=== PATIENT | male | born 1935 | race Caucasian/White ===

== ENCOUNTER → 2018-09-17 08:30 | Outpatient (CLI) | payer MEDICARE, OTHER, SELFPAY ==
--- NOTE | 2018-09-17 | DI.US.S_ITS ---
PROCEDURE: US ABD AORTA ANEURYSM SCREEN INDICATIONS: ABDOMINAL AORTIC ANEURYSM SCREENING TECHNIQUE: Real time scanning was performed of the aorta and iliac arteries, with image documentation. COMPARISON: None. FINDINGS: Aorta: Proximal aortic diameter measures 2.5 cm. Mid-aorta measures 2.0 cm. Distal aortic diameter is 1.8 cm. Iliac arteries: Right common iliac artery measures 1.2 cm. Left common iliac artery measures 1.2 cm. IMPRESSION: No abdominal aortic aneurysm is found. Dictated by: Ariel Navarrete M.D. on 09/17/2018 at 9:10 Approved by: Ariel Navarrete M.D. on 09/17/2018 at 9:18
== END ==
PROVIDERS: PCP Family Medicine; Visit Provider Family Medicine
DX: Z13.6 Encounter for screening for cardiovascular disorders (principal)
CPT/HCPCS: 76706

== ENCOUNTER 2019-02-16 10:51 | Day surgery (SDC) | payer MEDICARE, OTHER, SELFPAY ==
--- NOTE | 2019-02-16 | PATH_ITS ---
[facility] Accession Number: [id number] . 01 Material submitted: . PART A: colon - DESCENDING COLON POLYP X3 PART B: colon - SIGMOID POLYP X2 . 02 Diagnosis: A. Descending Colon, Polyps: Fragments of tubular adenoma and fragment of hyperplastic polyp (three polyps removed). . B. Sigmoid Colon, Polyps: Hyperplastic poly x1. Colonic mucosa with prominent benign lymphoid aggregate x1. MRV/02/17/2019 . 02 Electronically signed: . Everton Peoples MD, PhD, Pathologist NPI- [id number] . 01 Gross description: . Part A: DESCENDING COLON POLYP X3: Received in formalin are multiple fragment(s) of moses, soft tissue measuring 0.1 x 0.1 x 0.1 cm to 0.3 x 0.2 x 0.2 cm which is entirely submitted and submitted entirely in 1 cassette(s) Part B: SIGMOID POLYP X2: Received in formalin are 2 fragment(s) of moses, soft tissue measuring 0.2 x 0.2 x 0.2 cm to 0.3 x 0.2 x 0.2 cm which is entirely submitted and submitted entirely in 1 cassette(s) /DMC /DMC . 02 Pathologist provided ICD-10: D12.4, K63.5 . 02 CPT . 670812, [id number] Performed at: 01 [facility] [address] [id number] MD Jonnathan Dean MD Phone: [phone] Performed at: 02 [facility] [address] [place], [place] [id number] MD Deepa Christine MD Phone: [phone]
[2019-02-16] MEDS: SODIUM CHLORIDE 0.9% 1,000 ML 200 ML IV (11:05)
[2019-02-16 11:06] VITALS: BP 169/84; PULSE 56; RESP 16; TEMP 36.2; O2SAT 97; BMI 25.1
--- NOTE | 2019-02-16 11:28 | PM.HP.1 ---
History of Present Illness Date Patient Seen: 02/16/19 Time Patient Seen: 11:28 Chief complaint: 19457 Colonoscopy Narrative: 83-year-old man presents for his regular screening colonoscopy. Last was fiber 6 years ago. Known history of colon polyps status post polypectomy There is a possibility that his sister had colon cancer -he is unsure No family history of Crohn's or ulcerative colitis Tolerated his prep Patient History Medical History (Updated 02/16/19 @ 11:04 by Maya Mcdonald RN) Cancer (Acute) Elevated cholesterol (Acute) Surgical History (Updated 02/16/19 @ 11:06 by Maya Mcdonald RN) H/O inguinal hernia repair (Acute) S/P TURP (Acute) Social History household members: spouse Family & Social History Social History: household members spouse Meds Home Medications Medication Instructions Recorded Confirmed Type aspirin 81 mg PO DAILY 02/16/19 02/16/19 History Allergies Allergy/AdvReac Type Severity Reaction Status Date / Time No Known Drug Allergies Allergy Verified 02/16/19 11:02 Review of Systems Constitutional Constitutional: Denies fever(s) Eyes Eyes: Denies bulging eyes ENT Ears, Nose, Mouth, and Throat: No lip swelling Cardiovascular Cardiovascular: Denies generalize swelling Respiratory Respiratory: Denies stridor Gastrointestinal Gastrointestinal: Denies coffee ground emesis Musculoskeletal Musculoskeletal: Denies loss of height Integumentary/Breasts Skin/Breast: Denies wounds Neurologic Neurologic: Denies abnormal speech and Denies confusion Psychiatric Psychiatric: Denies confusion Endocrine Endocrine: Denies deepening of the voice Hematologic/Lymphatic Hematologic/Lymphatic: Denies lymphadenopathy Allergic/Immunologic Allergic/Immunologic: Denies lip swelling Exam Vital Signs (past 8 hours): - 02/16/19 11:06 Temperature 97.2 F L Pulse Rate 56 L Respiratory Rate 16 Blood Pressure 169/84 H Pulse Oximetry 97 Oxygen Delivery Method Room Air Const General: cooperative and healthy appearing Orientation: alert HENMT Head: normal to inspection Nose: nares normal Mouth: oral mucosae normal and lip normal Eyes Eyelids: eyelids normal Conjunctivae: conjunctivae normal Sclera: sclerae normal Neck Neck: supple and other (No thyromegally) Chest Chest: other (LCTAB , regular respiratory effort) Cardio Rhythm: regular rhythm Heart Sounds: S1 normal, S2 normal, no gallops, no murmurs and no rubs GI Other: Abdomen soft nontender nondistended Skin General: no rashes or lesions noted Neuro General: alert and awake Psych Appearance: grossly normal Affect: normal affect Assessment & Plan Assessment & Plan narrative: 83-year-old man presents for screening colonoscopy in the setting of above known colon polyp history Screening colonoscopy plan today Risks of procedure including , perforation, hypoxia, missed lesion all discussed Patient ready to proceed
[2019-02-16] MEDS: MIDAZOLAM 5 MG/5 ML VIAL IV (11:38)
[2019-02-16] MEDS: fentaNYL 250 MCG/5 ML INJ IV (11:39)
--- NOTE | 2019-02-16 12:16 | PM.OP.ENDO ---
Operative Date/Time/Diagnoses Date of procedure: 02/16/19 Time of procedure: 12:16 Pre-op diagnosis: screening colonoscopy Post-op diagnosis: other (colon polyps, prostate nodule) Procedure & Clinicians Study performed: screening colonoscopy Left colon cold biopsy polypectomy x 3 sigmoid colon cold biopsy polypectomy x 2 Same procedure as scheduled: Yes Indications: 83M with hx of colon polyps now 5-6yrs since last colonoscopy Surgeon: Tone Herrmann Procedure Notes SCOAP/Timeout: completed Procedure in detail: Patient taken to the endoscopy suite, time-out completed. Patient was sedated with a total of 4 mg of midazolam and 100 mcg fentanyl over the course of his entire procedure. A digital rectal exam was performed there are no colon lesion. There was however a moderately firm nodule identified on the inferior right pole of the prostate. 160 cm colonoscope was advanced through the patient's anus rectum and through course of the colon, there is a mild amount of difficulty negotiating the hepatic flexure both the remainder was without incident. The cecum was identified there was an obvious ileocecal valve, a subtle appendiceal orifice and a crows floot. The terminal ileum was intubated and appeared to be healthy. Then proceeded to back the colonoscope out slowly -identified left colon diverticula without active inflammation, upon reaching the mid descending colon a collection of 3 small sessile polyps were identified within a few cm of each other. These were all removed with cold biopsy forceps and sent to pathology and 1 group. The scope was further withdrawn into the sigmoid colon where there were numerous sigmoid diverticula without active inflammation. A total of 2 additional polyps were seen in the distal sigmoid colon -these were similarly removed with cold biopsy forceps. Upon reaching the distal rectum the scope was retroflexed did not identify a distal rectal. Scope was withdrawn Prep was adequate Scope withdrawal time: 18 Sedation minutes: 42 Findings: polyp Specimen(s): other (Sigmoid colon polyps, descending colon polyp) Complications: none Impression: 1) Left inferior prostate nodule 2) Left and sigmoid colon diverticulosis 3) small sessile colon polyps x 5, s/p polypectomy Recommendations: Colonscopy in 3 years Plan for aftercare: urology referal Pacu Home Follow up: as needed Disposition: PACU
[2019-02-16 12:20] VITALS: BP 116/63; PULSE 45; RESP 14; TEMP 36.3; O2SAT 98
[2019-02-16 12:25] VITALS: BP 116/52; PULSE 40; RESP 16; TEMP 36.3; O2SAT 98
[2019-02-16 12:27] VITALS: BP 123/68; PULSE 48; RESP 17; TEMP 36.1; O2SAT 97
[2019-02-16 12:35] VITALS: BP 120/60; PULSE 50; RESP 17; TEMP 36.3; O2SAT 98
== END 2019-02-16 12:40 | disposition home or self-care (01) ==
PROVIDERS: PCP Family Medicine; Visit Provider Surgery
PROC: 0DJD8ZZ Inspection of Lower Intestinal Tract, Via Natural or Artificial Opening Endoscopic (ICD-10-PCS; CPT 45378; principal; 2019-02-16 10:45)
DX: Z86.010 Personal history of colon polyps (principal); D12.5 Benign neoplasm of sigmoid colon; D12.4 Benign neoplasm of descending colon; K57.30 Diverticulosis of large intestine without perforation or abscess without bleeding; N40.2 Nodular prostate without lower urinary tract symptoms
CPT/HCPCS: 45380; 99152; 99153; J2250; J3010

== ENCOUNTER → 2021-12-19 08:58 | Outpatient (CLI) | payer MEDICARE, OTHER, SELFPAY ==
[2021-12-19 19:03] LABS: Add Manual Diff / Slide Review NO; Basophils Absolute Auto 100 /uL (0-100); Basophils Percent Auto 0.9 % (0-2); Eosinophils Absolute Auto 300 /uL (0-450); Eosinophils Percent Auto 3.6 % (2-4); Hematocrit 39.8 % (41-53); Hemoglobin 13.8 g/dL (13.5-17.5); Lymphocytes Absolute Auto 900 /uL (1100-4500); Lymphocytes Percent Auto 11.4 % (25-40); Mean Corpuscular HGB Conc 34.6 % (30-36); Mean Corpuscular Hemoglobin 32.5 PG (26-34); Mean Corpuscular Volume 93.9 fL (80-100); Monocytes Absolute Auto 1300 /uL (0-900); Monocytes Percent Auto 16.9 % (3-14); Neutrophils Absolute Auto 5200 /uL (1500-7000); Neutrophils Percent Auto 67.2 % (50-75); Platelet Count 242 X10^3/uL (150-400); Red Blood Cell Count 4.24 X10^6/uL (4.5-5.9); Red Cell Distribution Width 13.5 % (11.6-14.8); White Blood Cell Count 7.7 X10^3/uL (4.5-11.0)
[2021-12-19 19:08] LABS: Alanine Aminotransferase 18 IU/L (<50); Albumin 3.9 g/dL (3.5-5.0); Albumin Globulin Ratio 1.3 (1.0-2.8); Alkaline Phosphatase 79 U/L (38-126); Aspartate Aminotransferase 28 IU/L (17-59); BUN Creatinine Ratio 18.8 (6-22); Bilirubin Total 0.6 mg/dL (0.2-1.3); Blood Urea Nitrogen 19 mg/dL (9-20); Calcium 9.2 mg/dL (8.4-10.2); Carbon Dioxide 26 mmol/L (22-32); Chloride 106 mmol/L (98-107); Cholesterol 154 mg/dL (140-199); Estimated Glomerular Filt Rate > 60.0 mL/min (>60); Glucose 108 mg/dL (80-110); HDL Cholesterol 45 mg/dL (40-60); HEMOLYSIS < 15 (0-50); LDL Cholesterol Calculated 96 mg/dL (<100); Potassium 4.6 mmol/L (3.4-5.1); Sodium 138 mmol/L (137-145); Total Protein 6.9 g/dL (6.3-8.2); Triglycerides 67 mg/dL (35-150)
== END ==
PROVIDERS: PCP Family Medicine; Visit Provider Family Medicine
DX: E78.00 Pure hypercholesterolemia, unspecified (principal); I10 Essential (primary) hypertension
CPT/HCPCS: 80053; 80061; 85025

== ENCOUNTER → 2022-01-23 10:51 | Outpatient (CLI) | payer MEDICARE, OTHER, SELFPAY ==
[2022-01-23 18:43] LABS: Alanine Aminotransferase 14 IU/L (<50); Albumin 4.1 g/dL (3.5-5.0); Albumin Globulin Ratio 1.2 (1.0-2.8); Alkaline Phosphatase 92 U/L (38-126); Aspartate Aminotransferase 23 IU/L (17-59); BUN Creatinine Ratio 13.9 (6-22); Bilirubin Total 0.8 mg/dL (0.2-1.3); Blood Urea Nitrogen 14 mg/dL (9-20); Calcium 8.9 mg/dL (8.4-10.2); Carbon Dioxide 26 mmol/L (22-32); Chloride 104 mmol/L (98-107); Cholesterol 162 mg/dL (140-199); Estimated Glomerular Filt Rate > 60 mL/min (>60); Globulin 3.3 g/dL (1.7-4.1); Glucose 125 mg/dL (80-110); HDL Cholesterol 50 mg/dL (40-60); HEMOLYSIS < 15 (0-50); LDL Cholesterol Calculated 88 mg/dL (<100); Potassium 4.2 mmol/L (3.4-5.1); Sodium 140 mmol/L (137-145); Total Protein 7.4 g/dL (6.3-8.2); Triglycerides 118 mg/dL (35-150)
[2022-01-23 19:22] LABS: Prostate Specific Antigen Scrn 2.13 ng/mL (0.1-4.0)
[2022-01-24 16:55] LABS: HIV 1 & 2 Ab/Ag 4th Gen Combo NEGATIVE (NEGATIVE); Hep C Virus Ab w/Reflex Quant NEGATIVE s/c (NEGATIVE)
== END ==
PROVIDERS: PCP Family Medicine; Visit Provider Family Medicine
DX: E66.3 Overweight (principal); Z12.5 Encounter for screening for malignant neoplasm of prostate; C61 Malignant neoplasm of prostate; Z11.4 Encounter for screening for human immunodeficiency virus [HIV]; Z11.59 Encounter for screening for other viral diseases; Z13.1 Encounter for screening for diabetes mellitus; Z13.6 Encounter for screening for cardiovascular disorders
CPT/HCPCS: 80053; 80061; 86803; 87389; G0103

== ENCOUNTER → 2022-02-11 10:58 | Outpatient (CLI) | payer MEDICARE, OTHER, SELFPAY ==
--- NOTE | 2022-02-11 | DI.CT.S_ITS ---
PROCEDURE: CT LUNG LOW DOSE SCREENING INDICATIONS: SCREENING FOR LUNG CANCER TECHNIQUE: Noncontrast 2.0-2.5 mm thick sections acquired from the pulmonary apices to the posterior costophrenic angles. 7 mm thick axial MIP, and 5 mm coronal and sagittal reformats were then acquired. A low radiation dose technique was utilized. COMPARISON: None. FINDINGS: Image quality: Diagnostic, given the low radiation dose technique. Lungs and pleura: Multiple small nodules are present bilaterally. Reference lesions are listed in the following: Nodule 1: 2 mm; right upper lobe lateral; series 3, image 63. Nodule 2: 3 mm; right middle lobe anterior; series 3, image 130. Nodule 3: 3 mm; left lower lobe; series 3, image 182. Nodule 4: 2 mm; left lower lobe; series 3, image 204. Multiple small intra fissure nodules are seen in right major fissure. Mild emphysema. No acute pulmonary opacity. Mediastinum: Heart size is normal. No pericardial effusion. No mediastinal adenopathy by size criteria. Thoracic aorta and central pulmonary arteries are normal in size. Esophagus is normal in caliber. Small hiatal hernia. Bones and chest wall: No suspicious bony lesions. No vertebral body compression fractures. No axillary or supraclavicular adenopathy by size criteria. Thyroid gland is normal. Abdomen: Visualized upper abdomen solid organs and bowel loops appear normal in the absence of contrast. IMPRESSION: 1. Small lung nodules are present bilaterally. LUNG-RADS 2; recommend annual screening lung CT in 12 months. Dictated by: Neto Stewart M.D. on 02/11/2022 at 12:21 Approved by: Neto Stewart M.D. on 02/11/2022 at 12:35
== END ==
PROVIDERS: PCP Family Medicine; Referring Provider Family Medicine; Visit Provider Family Medicine
DX: Z12.2 Encounter for screening for malignant neoplasm of respiratory organs (principal); R91.8 Other nonspecific abnormal finding of lung field
CPT/HCPCS: 71250

== ENCOUNTER → 2022-09-19 11:31 | Outpatient (CLI) | payer MEDICARE, OTHER, SELFPAY ==
[2022-09-19 19:49] LABS: BUN Creatinine Ratio 17.6 (6-22); Blood Urea Nitrogen 16 mg/dL (9-20); Calcium 8.7 mg/dL (8.4-10.2); Carbon Dioxide 26 mmol/L (22-32); Chloride 101 mmol/L (98-107); Cholesterol 159 mg/dL (140-199); Estimated Glomerular Filt Rate > 60 mL/min (>60); Glucose 98 mg/dL (80-110); HDL Cholesterol 46 mg/dL (40-60); HEMOLYSIS < 15 (0-50); LDL Cholesterol Calculated 98 mg/dL (<100); Potassium 4.7 mmol/L (3.4-5.1); Sodium 138 mmol/L (137-145); Triglycerides 73 mg/dL (35-150)
[2022-09-19 20:17] LABS: Prostate Specific Antigen 2.33 ng/mL (0.10-4.00)
== END ==
PROVIDERS: PCP Family Medicine; Visit Provider Family Medicine
DX: I10 Essential (primary) hypertension (principal); Z85.46 Personal history of malignant neoplasm of prostate; E78.5 Hyperlipidemia, unspecified
CPT/HCPCS: 80048; 80061; 84153

== ENCOUNTER → 2023-06-12 09:53 | Outpatient (CLI) | payer MEDICARE, OTHER, SELFPAY ==
[2023-06-12 19:29] LABS: Cholesterol 149 mg/dL (140-199); Glucose 100 mg/dL (80-110); HDL Cholesterol 43 mg/dL (40-60); LDL Cholesterol Calculated 95 mg/dL (<100); Triglycerides 56 mg/dL (35-150)
== END ==
PROVIDERS: PCP Family Medicine; Visit Provider Family Medicine
DX: I10 Essential (primary) hypertension (principal); H35.341 Macular cyst, hole, or pseudohole, right eye; Z13.220 Encounter for screening for lipoid disorders; Z13.1 Encounter for screening for diabetes mellitus
CPT/HCPCS: 80061; 82947

== ENCOUNTER → 2023-09-19 10:31 | Outpatient (CLI) | payer MEDICARE, OTHER, SELFPAY ==
--- NOTE | 2023-09-19 10:32 | DI.NM.S_ITS ---
PROCEDURE: NM EVARISTO PERF SPECT R&S PHARM Rest and pharmacological stress myocardial perfusion SPECT with gated imaging and ejection fraction RADIOPHARMACEUTICAL: 11.6 mCi Tc-99m tetrafosmin IV at rest and 24.7 mCi Tc-99m tetrafosmin IV at peak effect of pharmacological stress. [id number] was performed. INDICATIONS: Other fatigue TECHNIQUE: Radiopharmaceutical was injected at peak stress test, and also at rest. SPECT images were obtained. SPECT myocardial perfusion images were displayed in short axis, horizontal long axis, and vertical long axis views. Gated images were reviewed using [employer] software. COMPARISON: None. CARDIAC STRESS: A pharmacologic stress test was performed under the supervision of an attending staff, using an infusion of lexiscan 0.4mg IV X1. Hemodynamic data: There is normal blood pressure and heart rate response to pharmacologic stress. Symptoms: The patient denied anginal chest pain. Aminophylline: none EKG: No diagnostic changes of ischemia; no ectopy. FINDINGS: Raw data: There is good myocardial uptake of radiotracer. No significant motion artifacts. Left ventricle function: Gated images demonstrate normal left ventricular wall thickening. No segmental wall motion abnormalities. No transient ischemic dilation; TID is 0.86 (normal less than 1.3). Left ventricle resting end diastolic volume is 103 mL. Left ventricle stress ejection fraction is 76%; normal range is above 45%. Myocardial perfusion: There is normal distribution of activity in the right and left ventricular myocardium. No fixed or reversible perfusion defects. IMPRESSION: Low risk, normal pharm nuclear stress test with normal wall motion and normal systolic function (EF post stress 76%). Dictated by: Angela Child MD on 09/19/2023 at 17:11 Approved by: Angela Child MD on 09/19/2023 at 17:12
== END ==
PROVIDERS: PCP Family Medicine; Referring Provider Internal Medicine Cardiovascular Disease; Visit Provider Internal Medicine Cardiovascular Disease
DX: R53.83 Other fatigue (principal); I10 Essential (primary) hypertension; E78.5 Hyperlipidemia, unspecified; R00.1 Bradycardia, unspecified
CPT/HCPCS: 78452; 93017; A9502; J2785

== ENCOUNTER → 2024-01-29 11:24 | Outpatient (CLI) | payer MEDICARE, OTHER, SELFPAY ==
[2024-01-29 19:55] LABS: Add Manual Diff / Slide Review NO; Basophils Absolute Auto 0 /uL (0-100); Basophils Percent Auto 0.4 % (0-2); Eosinophils Absolute Auto 100 /uL (0-450); Eosinophils Percent Auto 1.5 % (2-4); Hematocrit 40.4 % (41-53); Hemoglobin 13.8 g/dL (13.5-17.5); Lymphocytes Absolute Auto 900 /uL (1100-4500); Lymphocytes Percent Auto 12.6 % (25-40); Mean Corpuscular HGB Conc 34.2 % (30-36); Mean Corpuscular Hemoglobin 32.6 PG (26-34); Mean Corpuscular Volume 95.4 fL (80-100); Monocytes Absolute Auto 1200 /uL (0-900); Monocytes Percent Auto 16.5 % (3-14); Neutrophils Absolute Auto 4800 /uL (1500-7000); Platelet Count 255 X10^3/uL (150-400); Red Blood Cell Count 4.23 X10^6/uL (4.5-5.9); Red Cell Distribution Width 13.7 % (11.6-14.8)
[2024-01-29 20:12] LABS: Blood Urea Nitrogen 16 mg/dL (9-20); Calcium 9.2 mg/dL (8.4-10.2); Carbon Dioxide 27 mmol/L (22-32); Chloride 107 mmol/L (98-107); Estimated Glomerular Filt Rate > 60 mL/min (>60); Glucose 73 mg/dL (80-110); HEMOLYSIS < 15 (0-50); Potassium 4.2 mmol/L (3.4-5.1); Sodium 139 mmol/L (137-145)
[2024-01-29 20:40] LABS: Free T4, Direct Thyroxine 1.06 ng/dL (0.78-2.19)
== END ==
PROVIDERS: PCP Family Medicine; Visit Provider Family Medicine
DX: R53.83 Other fatigue (principal)
CPT/HCPCS: 80048; 84439; 85025

== ENCOUNTER → 2024-06-01 13:28 | Outpatient (CLI) | payer MEDICARE, OTHER, SELFPAY ==
[2024-06-01 20:12] LABS: Prostate Specific Antigen 3.18 ng/mL (0.10-4.00)
== END ==
PROVIDERS: PCP Family Medicine; Visit Provider Urology
DX: C61 Malignant neoplasm of prostate (principal)
CPT/HCPCS: 84153

== ENCOUNTER → 2024-07-16 09:19 | Outpatient (CLI) | payer MEDICARE, OTHER, SELFPAY ==
[2024-07-16 18:59] LABS: Cholesterol 147 mg/dL (140-199); Glucose 98 mg/dL (80-110); HDL Cholesterol 53 mg/dL (40-60); LDL Cholesterol Calculated 81 mg/dL (<100); Triglycerides 64 mg/dL (35-150)
[2024-07-16 19:31] LABS: Prostate Specific Antigen Scrn 3.28 ng/mL (0.1-4.0)
[2024-07-17 19:26] LABS: Hep C Virus Ab w/Reflex Quant NEGATIVE s/c (NEGATIVE)
== END ==
PROVIDERS: PCP Family Medicine; Referring Provider Family Medicine; Visit Provider Family Medicine
DX: Z13.1 Encounter for screening for diabetes mellitus (principal); Z13.6 Encounter for screening for cardiovascular disorders; Z12.5 Encounter for screening for malignant neoplasm of prostate; Z13.220 Encounter for screening for lipoid disorders; Z11.59 Encounter for screening for other viral diseases
CPT/HCPCS: 80061; 82947; 86803; G0103

== ENCOUNTER → 2025-06-29 10:17 | Outpatient (CLI) | payer MEDICARE, OTHER, SELFPAY ==
[2025-06-29 18:45] LABS: Add Manual Diff / Slide Review NO; Hematocrit 42.2 % (41-53); Hemoglobin 14.6 g/dL (13.5-17.5); Lymphocytes Absolute Auto 900 /uL (1100-4500); Mean Corpuscular HGB Conc 34.6 % (30-36); Mean Corpuscular Hemoglobin 32.7 PG (26-34); Mean Corpuscular Volume 94.4 fL (80-100); Platelet Count 252 X10^3/uL (150-400)
[2025-06-29 18:53] LABS: Blood Urea Nitrogen 16 mg/dL (9-20); Calcium 8.9 mg/dL (8.4-10.2); Carbon Dioxide 25 mmol/L (22-32); Chloride 104 mmol/L (98-107); Cholesterol 162 mg/dL (140-199); Estimated Glomerular Filt Rate > 60 mL/min (>60); Glucose 102 mg/dL (70-99); HDL Cholesterol 57 mg/dL (40-60); HEMOLYSIS 18 (0-50); Potassium 4.8 mmol/L (3.4-5.1); Sodium 138 mmol/L (137-145); Triglycerides 87 mg/dL (35-150)
[2025-06-29 19:24] LABS: Prostate Specific Antigen 4.19 ng/mL (0.10-4.00)
== END ==
PROVIDERS: PCP Family Medicine; Visit Provider Family Medicine
DX: I10 Essential (primary) hypertension (principal); Z85.46 Personal history of malignant neoplasm of prostate; E78.5 Hyperlipidemia, unspecified; C67.9 Malignant neoplasm of bladder, unspecified
CPT/HCPCS: 80048; 80061; 84153; 85025

== ENCOUNTER → 2025-07-14 10:26 | Outpatient (CLI) | payer MEDICARE, OTHER, SELFPAY ==
[2025-07-14 19:35] LABS: Prostate Specific Antigen 3.74 ng/mL (0.10-4.00)
== END ==
PROVIDERS: PCP Family Medicine; Visit Provider Urology
DX: C61 Malignant neoplasm of prostate (principal)
CPT/HCPCS: 84153

== ENCOUNTER → 2025-07-20 14:08 | Outpatient (CLI) | payer MEDICARE, OTHER, SELFPAY ==
[2025-07-20 19:40] LABS: TSH w/ Reflex to FT4 3.19 uIU/mL (0.47-4.68)
[2025-07-20 20:16] LABS: Folate 10.1 ng/mL (2.76-20.0); Vitamin B12 987 pg/mL (239-931)
[2025-07-25 13:41] LABS: Albumin 3.5 g/dL (2.9-4.4); Alpha-1-Globulin 0.2 g/dL (0.0-0.4); Alpha-2-Globulin 0.7 g/dL (0.4-1.0); Gamma Globulin 1.3 g/dL (0.4-1.8)
== END ==
PROVIDERS: PCP Family Medicine; Visit Provider Family Medicine
DX: R53.83 Other fatigue (principal); G56.90 Unspecified mononeuropathy of unspecified upper limb
CPT/HCPCS: 82607; 82746; 84155; 84165; 84443